=== PATIENT | female | born 1960 | race Caucasian/White ===

== ENCOUNTER → 2018-01-24 | Outpatient (CLI) | payer OTHER ==
[2018-01-24 13:39] LABS: HEMOGLOBIN A1C 7.1 % (4.5-5.6)
[2018-01-24 14:05] LABS: CREATININE RANDOM URINE 25.6 mg/dl
[2018-01-24 14:42] LABS: ALT/SGPT 49 U/L (12-78); AST/SGOT 28 U/L (15-37); BLOOD UREA NITROGEN 16 mg/dl (7-18); CARBON DIOXIDE 22 mmol/L (21-32); CHOLESTEROL 299 mg/dl (0-200); CREATININE 0.97 mg/dl (0.60-1.20); GLUCOSE 117 mg/dl (70-99); SODIUM 140 mmol/L (136-145)
== END | disposition home or self-care (01) ==
LOC: C.LABPBG 08:13
PROVIDERS: ATTEND Family Medicine
DX: E78.1 Pure hyperglyceridemia (principal); I25.10 Atherosclerotic heart disease of native coronary artery without angina pectoris; E11.9 Type 2 diabetes mellitus without complications